=== PATIENT | male | born 1995 | race Caucasian/White ===

== ENCOUNTER → 2019-08-25 09:42 | Outpatient (CLI) | payer OTHER, SELFPAY ==
--- NOTE | 2019-08-25 09:46 | DI.RAD.S_ITS ---
PROCEDURE: XR ANKLE LT MIN 3V INDICATIONS: left ankle pain x 3 months after sprain TECHNIQUE: 3 views of the ankle were acquired. COMPARISON: None. FINDINGS: Bones: No fractures or dislocations. Ankle mortise is normally aligned. No suspicious bony lesions. Small dorsal calcaneal bone spur. Soft tissues: No tibiotalar joint effusion. Achilles tendon appears normal. IMPRESSION: No fracture. No osseous lesion. If symptoms and/or clinical suspicion for pathology persists, further assessment with advanced imaging (e.g. CT, MRI or bone scan) may be helpful. Dictated by: Esperanza Desouza MD, PhD on 08/25/2019 at 9:59 Approved by: Esperanza Desouza MD, PhD on 08/25/2019 at 10:00
== END ==
PROVIDERS: PCP Family Medicine; Referring Provider Family Medicine; Visit Provider Family Medicine
DX: M25.572 Pain in left ankle and joints of left foot (principal)
CPT/HCPCS: 73610

== ENCOUNTER → 2020-02-08 10:51 | Outpatient (CLI) | payer OTHER, SELFPAY ==
[2020-02-08 16:21] LABS: Urine N gonorrhoeae NOT DETECTED
[2020-02-08 16:37] LABS: Urine Chlamydia NOT DETECTED
== END ==
PROVIDERS: PCP Family Medicine; Visit Provider Physician Assistant
DX: Z11.3 Encounter for screening for infections with a predominantly sexual mode of transmission (principal)
CPT/HCPCS: 87491; 87591

== ENCOUNTER → 2020-02-09 08:34 | Outpatient (CLI) | payer OTHER, SELFPAY ==
[2020-02-09 19:01] LABS: HIV 1 & 2 Ab/Ag 4th Gen Combo NEGATIVE (NEGATIVE)
[2020-02-10 01:42] LABS: HBsAg Screen Negative (Negative); Hepatitis A Antibody IgM Negative (Negative); Hepatitis B Core Antibody IgM Negative (Negative); Hepatitis C Antibody <0.1 s/co ratio (0.0-0.9)
[2020-02-10 04:36] LABS: HSV Type 1 AB, IgG <0.91 index (0.00-0.90)
[2020-02-10 07:09] LABS: RPR Screen Non Reactive (Non Reactive)
[2020-02-10 18:58] LABS: HSV I/II IgM <0.91 Ratio (0.00-0.90)
== END ==
PROVIDERS: PCP Family Medicine; Referring Provider Physician Assistant; Visit Provider Physician Assistant
DX: Z11.3 Encounter for screening for infections with a predominantly sexual mode of transmission (principal)
CPT/HCPCS: 36415; 80074; 86592; 86694; 86695; 86696; 87389

== ENCOUNTER → 2020-04-14 13:40 | Outpatient (CLI) | payer OTHER, SELFPAY ==
[2020-04-14 16:52] LABS: COVID19 -Nasal RAPID POSITIVE (Negative)
== END ==
PROVIDERS: PCP Family Medicine; Visit Provider Nurse Practitioner
DX: Z20.822 Contact with and (suspected) exposure to COVID-19 (principal); R05 Cough; R09.81 Nasal congestion
CPT/HCPCS: 87635

== ENCOUNTER → 2020-11-12 09:25 | Outpatient (CLI) | payer OTHER, SELFPAY ==
[2020-11-12 10:40] LABS: COVID19 -Nasal RAPID Negative (Negative)
== END ==
PROVIDERS: PCP Family Medicine; Visit Provider Nurse Practitioner
DX: Z20.822 Contact with and (suspected) exposure to COVID-19 (principal); R53.83 Other fatigue; R05 Cough; H92.09 Otalgia, unspecified ear
CPT/HCPCS: 87070; 87147; 87635

== ENCOUNTER → 2021-03-23 16:33 | Outpatient (CLI) | payer OTHER, SELFPAY ==
[2021-03-23 17:05] LABS: COVID19 -Nasal RAPID Negative (Negative)
== END ==
PROVIDERS: PCP Family Medicine; Referring Provider Nurse Practitioner Family; Visit Provider Nurse Practitioner Family
DX: Z20.822 Contact with and (suspected) exposure to COVID-19 (principal)
CPT/HCPCS: 87635